=== PATIENT | female | born 1960 | race Caucasian/White ===

== ENCOUNTER → 2020-07-18 | Day surgery (SDC) | payer BC ==
[~2020-07-18] MED LIST: CALCIUM500 MG PO; GABAPENTIN100 MG PO; HYOSCYAMINE 0.125 MG TAB ONE; LATANOPROST2.5 ML OU; MAGNESIUM PO; NEXIUM40 MG PO; PANTOPRAZOLE SO40 MG PO; SIMETHICONE 40 MG/0.6 ML BTL ONE; SINGULAIR10 MG PO; TIZANIDINE HCL4 MG PO; ZINC SULFATE220 M1 PO; ZYRTEC10 M3 PO
--- NOTE | 2020-07-18 07:20 | NUR ---
SPIRITUAL CARE - Pre-Surgery Assessment: Pt in bed. Pt reported supportive attention from family and friends. Intervention: Provided pastoral presence, hospitality, and sympathetic listening. Acquainted pt with availability of throw out clerk while hospitalized. Outcome: Pt expressed appreciation for visit. No need for follow up indicated at this time. RADHA Orozco Spiritual Care Department O: [phone]
[2020-07-18 10:05] VITALS: BP 109/62
--- NOTE | 2020-07-18 10:16 | Operative Report ---
DATE OF PROCEDURE: 07/18/2020 SURGEON: Micky Zhang MD PROCEDURE: EGD with biopsies, colonoscopy with polypectomy. INDICATIONS FOR EGD: Dyspepsia. INDICATIONS FOR COLONOSCOPY: Colorectal cancer screening, brother and sister with colon cancer. MEDICATIONS: The patient was done under MAC, please see anesthesiologist's note. PROCEDURE IN DETAIL: With the patient in left lateral decubitus position, a flexible fiberoptic Olympus gastroscope was introduced into the esophagus under direct visualization without any difficulty. A minute tongue of velvety red mucosa was noted to extend proximally from the GE junction that was biopsied to rule out Arredondo. There was some focal nodularity noted at the GE junction and biopsies were obtained. The scope was then advanced with ease into the stomach traversing a small hiatal hernia. Mucosa overlying the antrum and the body revealed some patchy erythema and low-grade edema and biopsies were obtained sent to stain for H pylori. Pylorus was of normal contour and shape, was intubated with ease and the scope was advanced all the way to the second portion of the duodenum. Biopsies were obtained from the proximal second portion and the duodenal bulb to rule out sprue. The scope was then withdrawn back into the stomach and retroflexed and mucosa overlying the fundus as well as the cardia appeared to be within normal limits. The scope was then straightened out and was subsequently withdrawn. The patient tolerated the procedure well. IMPRESSION: 1. Rule out Arredondo esophagus. 2. Focal nodularity, GE junction, biopsied. 3. Small hiatal hernia. 4. Gastritis, biopsied, biopsies sent to stain for H pylori. 5. Rule out sprue. PLAN: Follow up histology. Initiate Protonix 40 mg one p.o. q.a.m. a.c. The patient was then turned around after adequate lubrication of the anal canal, a flexible fiberoptic Olympus colonoscope was inserted into the rectum with ease and advanced all the way to the cecum. Mucosa overlying the cecum appeared to be within normal limits. Diverticular disease was noted to be scattered throughout the colon, but it was noted to be more prominent in the descending and the sigmoid colon. One minute polyp was cold biopsied from the ascending colon. The cecum appeared to be within normal limits. Other than for diverticular disease, ascending and the transverse grossly appeared to be within normal limits. One polyp was hot biopsied, one polyp was hot snared from the descending colon. Two polyps were hot snared from the sigmoid colon. The rectum appeared to be within normal limits. The scope was then retroflexed into the distal rectum and the area around the dentate line appeared to be within normal limits. The scope was then straightened out and was subsequently withdrawn. The patient tolerated the procedure well. IMPRESSION: 1. Diverticulosis. 2. Ascending colon polyp, cold biopsied. 3. Descending colon polyps x2, one hot snared, one hot biopsied. 4. Sigmoid colon polyps x2, hot snare. PLAN: Followup histology. Initiate high-fiber, low-fat diet. Initiate high-fiber supplement. The patient might benefit from a followup colonoscopy in 2 to 3 years. Micky Zhang MD [facility] [place]/[facility] /[id number] cc: Babatunde Nguyen MD
== END | disposition home or self-care (01) ==
LOC: OR 05:51
PROVIDERS: ATTEND Internal Medicine Gastroenterology
DX: Z12.11 Encounter for screening for malignant neoplasm of colon (principal); D12.2 Benign neoplasm of ascending colon; D12.4 Benign neoplasm of descending colon; D12.5 Benign neoplasm of sigmoid colon; K29.70 Gastritis, unspecified, without bleeding; K20.90 Esophagitis, unspecified without bleeding; K22.8 Other specified diseases of esophagus; K44.9 Diaphragmatic hernia without obstruction or gangrene; K57.30 Diverticulosis of large intestine without perforation or abscess without bleeding; I49.9 Cardiac arrhythmia, unspecified; K21.9 Gastro-esophageal reflux disease without esophagitis; N20.0 Calculus of kidney; F17.210 Nicotine dependence, cigarettes, uncomplicated; Z91.041 Radiographic dye allergy status; Z01.810 Encounter for preprocedural cardiovascular examination; Z01.812 Encounter for preprocedural laboratory examination; Z20.828 Contact with and (suspected) exposure to other viral communicable diseases; Z80.0 Family history of malignant neoplasm of digestive organs
CPT/HCPCS: 43239; 45380; 45384; 45385; 93005; U0002; 45378

== ENCOUNTER → 2025-05-10 | Day surgery (SDC) | payer BC ==
[~2025-05-10] MED LIST changes: +CALCIUM-MAGNES1 EAC8; +FENTANYL CITRATE/PF 100MCG/2 ML INJ ONE; -HYOSCYAMINE 0.125 MG TAB ONE; +HYOSCYAMINE SULFATE 0.5 MG/ML INJ ONE; +LIDOCAINE HCL 2% LOCAL INJ 5 ML SDV VIAL INJ ONE; +PHENYLEPHRINE HCL 1% 10 MG/ML VIAL ONE; +PROPOFOL IV EMULSION 10 MG/ML 20 ML VIAL ONE; -SIMETHICONE 40 MG/0.6 ML BTL ONE; +VENTOLIN HFA18 GM INH; +[UNRECOGNIZED DRUG - OTHER]
[2025-05-10] MEDS: LACTATED RINGER'S 1,000 ML ONE (11:05)
[2025-05-10 12:54] VITALS: TEMP 98
[2025-05-10 13:15] VITALS: BP 110/79; PULSE 70; RESP 18; O2SAT 97
== END | disposition home or self-care (01) ==
LOC: OR 10:31
PROVIDERS: ATTEND Internal Medicine Gastroenterology
DX: Z09 Encounter for follow-up examination after completed treatment for conditions other than malignant neoplasm (principal); K63.5 Polyp of colon; Z80.0 Family history of malignant neoplasm of digestive organs; K57.30 Diverticulosis of large intestine without perforation or abscess without bleeding; E11.9 Type 2 diabetes mellitus without complications; Z79.85 Long-term (current) use of injectable non-insulin antidiabetic drugs; K21.9 Gastro-esophageal reflux disease without esophagitis; J45.909 Unspecified asthma, uncomplicated; F17.200 Nicotine dependence, unspecified, uncomplicated; Z01.810 Encounter for preprocedural cardiovascular examination; Z71.3 Dietary counseling and surveillance; Z68.31 Body mass index [BMI] 31.0-31.9, adult; Z79.899 Other long term (current) drug therapy
CPT/HCPCS: 36415; 45385; 82948; 93005; J1980; J2003; J2371; J2704; J3010; J7121